=== PATIENT | male | born 1990 | race African-American/Black ===

== ENCOUNTER 2018-07-23 12:22 | Emergency (ER) | payer MEDICAID ==
[~2018-07-23] VITALS: Ht 193 cm; Wt 99.8 kg
[2018-07-23 12:40] VITALS: BP 129/108
[2018-07-23 13:34] LABS: Urine Bacteria NONE SEEN /hpf (None Seen); Urine Blood Negative /uL (Negative); Urine Mucus FEW (None Seen); Urine Specific Gravity 1.025 (1.001-1.035); Urine WBC 1 /hpf (0 - 3)
[2018-07-23] MEDS ORDERED: ACETAMINOPHEN 500 MG TAB PO ONE (14:00)
[2018-07-23] MEDS ORDERED: cefTRIAXone SOD 1,000 MG VL IM ONE (14:00)
== END 2018-07-23 14:33 | disposition home or self-care (01) ==
LOC: ER 12:22
DX: J20.9 Acute bronchitis, unspecified (principal); J03.90 Acute tonsillitis, unspecified
CPT/HCPCS: 71046; 81001; 96372; 99284; J0696

== ENCOUNTER 2018-11-30 01:54 | Emergency (ER) | payer MEDICAID ==
[~2018-11-30] VITALS: Ht 193 cm; Wt 84.4 kg
[2018-11-30 03:57] VITALS: BP 122/77
== END 2018-11-30 04:09 | disposition home or self-care (01) ==
LOC: ER 01:54
DX: S63.502A Unspecified sprain of left wrist, initial encounter (principal); F17.210 Nicotine dependence, cigarettes, uncomplicated; F12.10 Cannabis abuse, uncomplicated; Y04.0XXA Assault by unarmed brawl or fight, initial encounter; Y93.89 Activity, other specified; Y92.89 Other specified places as the place of occurrence of the external cause; Y99.8 Other external cause status
CPT/HCPCS: 73090